=== PATIENT | female | born 1960 | race Caucasian/White ===

== ENCOUNTER 2017-02-27 12:25 | Inpatient (IN) | payer OTHER ==
[~2017-02-27] VITALS: Ht 162.6 cm; Wt 70.4 kg
[~2017-02-27 12:25] MED LIST: ALPR0.5T3 PO; BACITRACIN 50,000 UNIT ONE; BUPIVACAINE/PF-EPI 0.5% 1:200K ONE; CALC-72 PO; CEFAZOLIN 1,000 MG ONE; CHOL400T10 PO; DEXAMETHASONE 4 MG/ML, 1ML ONE; DIVA500T4 PO; ESZO3TAB9 PO; MULT-658 PO; ONDANSETRON 2MG/ML, 2ML ONE; PROPOFOL 10 MG/ML, 20ML ONE; PROPOFOL 10 MG/ML, 50ML ONE; SELE200T10 PO; SUCCINYLCHOLINE 20 MG/ML, 10ML ONE; THROMBIN 20,000 UNIT VIAL TP ONE; ZIPR40CA2 PO
[2017-02-27 13:02] VITALS: BP 133/90
[2017-02-27] MEDS ORDERED: LACTATED RINGERS 1,000 ML IV SCH (13:06)
[2017-02-27] MEDS ORDERED: KETAMINE 10 MG/ML, 20ML ONE (15:09)
[2017-02-27] MEDS ORDERED: FENTANYL PF 250 MCG/5ML ONE (15:09)
[2017-02-27] MEDS ORDERED: MIDAZOLAM 1 MG/ML, 2ML ONE (15:09)
[2017-02-27] MEDS ORDERED: BUPIVACAINE/PF-EPI 0.5% 1:200K INFIL ONE (17:30)
[2017-02-27] MEDS ORDERED: HYDROmorphone 1 MG/ML, 1ML ONE (18:08)
[2017-02-27] MEDS ORDERED: FENTANYL PF 100 MCG/2ML ONE ×2 (18:08→20:37)
[2017-02-27] MEDS ORDERED: hydrALAzine 20 MG/ML, 1ML IV PRN (19:30)
[2017-02-27] MEDS ORDERED: ACETAMINOPHEN 325 MG TABLET PO PRN (19:30)
[2017-02-27] MEDS ORDERED: PROMETHAZINE 25 MG/ML, 1ML IV PRN (19:30)
[2017-02-27] MEDS ORDERED: ALBUTEROL/IPRATROPIUM 2.5MG/0.5MG, 3 ML NPPB PRN (19:30)
[2017-02-27] MEDS ORDERED: OXYcodone 5 MG/5 ML ORAL.SOL UDC PO PRN (19:30)
[2017-02-27] MEDS ORDERED: ONDANSETRON 2MG/ML, 2ML IVPush PRN (19:30)
[2017-02-27] MEDS ORDERED: LABETALOL 5MG/ML, 20ML IV PRN ×2 (19:30→22:30)
[2017-02-27] MEDS ORDERED: MEPERIDINE/PF 25MG/0.5ML IVPush PRN (19:30)
[2017-02-27] MEDS ORDERED: MIDAZOLAM 1 MG/ML, 2ML IV PRN (19:30)
[2017-02-27] MEDS ORDERED: ACETAMINOPHEN 650 MG/20.3 ML UDC ONE (20:37)
[2017-02-27] MEDS ORDERED: HYDROmorphone 2 MG/ML, 1ML ONE (20:37)
[2017-02-27] MEDS ORDERED: OXYcodone 5 MG/5 ML ORAL.SOL UDC ONE (20:37)
[2017-02-27] MEDS: HYDROmorphone 1 MG/ML, 1ML IV PRN ×4 (20:40→21:21)
[2017-02-27] MEDS: FENTANYL PF 100 MCG/2ML IV PRN ×3 (20:45→20:56)
[2017-02-27] MEDS ORDERED: PHARMACY MAY ADJ FOR RENAL FX MC PRN (22:00)
[2017-02-27] MEDS ORDERED: ZOLPIDEM 5MG TABLET PO PRN (22:30)
[2017-02-27] MEDS ORDERED: HYDROcodone/APAP 5/325 TABLET PO PRN (22:30)
[2017-02-27] MEDS ORDERED: DIAZEPAM 5 MG TABLET PO PRN (22:30)
[2017-02-27] MEDS ORDERED: METHOCARBAMOL 1,000 MG in DEXTROSE 5% 100 ML IV ONE (22:30)
[2017-02-27] MEDS ORDERED: MAGNESIUM HYDROXIDE 8%, 30ML UDC PO PRN (22:30)
[2017-02-27] MEDS ORDERED: BISACODYL 10 MG SUPP PR PRN (22:30)
[2017-02-27] MEDS ORDERED: DIAZEPAM 5 MG/ML, 2ML IV PRN (22:30)
[2017-02-27] MEDS: NS + 20MEQ KCL 1,000 ML IV SCH (23:00)
[2017-02-27] MEDS: CEFAZOLIN PMX 1GM/50ML 50 ML IVPB SCH (23:00)
[2017-02-28 00:06] VITALS: BP 131/77
[2017-02-28] MEDS: OXYcodone/APAP 10/325MG TABLET PO PRN ×5 (00:42→19:38)
[2017-02-28 03:55] VITALS: BP 107/67
[2017-02-28] MEDS: ONDANSETRON 2MG/ML, 2ML IV PRN ×3 (05:10→18:12)
[2017-02-28] MEDS: morphine SULFATE 10 MG/ML, 1ML IV PRN ×3 (05:12→15:39)
[2017-02-28] MEDS: CEFAZOLIN PMX 1GM/50ML 50 ML IVPB SCH (06:16)
[2017-02-28] MEDS: PROMETHAZINE 25 MG/ML, 1ML IM PRN ×2 (06:28→15:44)
[2017-02-28] MEDS: METHOCARBAMOL 750 MG in DEXTROSE 5% 100 ML IV SCH ×3 (06:53→23:08)
[2017-02-28] MEDS: CHOLECALCIFEROL 400 UNITS TABLET PO SCH (08:26)
[2017-02-28] MEDS: CALCIUM/VITAMIN D3 250-125 TABLET PO SCH (08:26)
[2017-02-28] MEDS: SENNA/DOCUSATE TABLET PO SCH (08:26)
[2017-02-28 08:27] VITALS: BP 117/74
[2017-02-28] MEDS ORDERED: LORazepam 2 MG/ML, 1ML IV ONE (09:30)
[2017-02-28] MEDS ORDERED: ACETAMINOPHEN 500 MG TABLET PO PRN (09:30)
[2017-02-28] MEDS ORDERED: ALUMINUM/MAG/SIMETHICONE 30 ML UDC PO PRN (09:30)
[2017-02-28] MEDS ORDERED: ACETAMINOPHEN 650 MG SUPP PR PRN ×2 (09:30→12:30)
[2017-02-28] MEDS ORDERED: METOCLOPRAMIDE 10MG TABLET PO SCH (09:30)
[2017-02-28] MEDS ORDERED: PANTOPRAZOLE 40 MG IV IVPush ONE (09:30)
[2017-02-28] MEDS: DEXAMETHASONE 4 MG/ML, 1ML IV SCH ×3 (10:57→21:31)
[2017-02-28] MEDS ORDERED: ACETAMINOPHEN 650 MG SUPP ONE (12:30)
[2017-02-28] MEDS: NS + 20MEQ KCL 1,000 ML IV SCH (12:34)
[2017-02-28] MEDS: METOCLOPRAMIDE 5 MG/ML, 2ML IVPush PRN ×2 (12:53→21:45)
[2017-02-28 14:30] VITALS: BP 126/71
[2017-02-28 18:52] VITALS: BP 145/79
[2017-02-28] MEDS ORDERED: DIVALPROEX 250 MG TAB.ER.24H PO SCH (21:00)
[2017-02-28] MEDS ORDERED: ZIPRASIDONE 40MG CAPSULE PO SCH (21:00)
[2017-03-01] MEDS: OXYcodone/APAP 10/325MG TABLET PO PRN ×3 (00:45→14:07)
[2017-03-01 01:18] VITALS: BP 124/72
[2017-03-01] MEDS: NS + 20MEQ KCL 1,000 ML IV SCH ×2 (02:47→14:03)
[2017-03-01] MEDS: DEXAMETHASONE 4 MG/ML, 1ML IV SCH ×3 (04:11→15:13)
[2017-03-01] MEDS: METHOCARBAMOL 750 MG in DEXTROSE 5% 100 ML IV SCH ×2 (05:55→14:30)
[2017-03-01 07:50] VITALS: BP 142/86
[2017-03-01] MEDS ORDERED: HYDROcodone/APAP 10/325 MG TABLET PO PRN (08:00)
[2017-03-01] MEDS: SENNA/DOCUSATE TABLET PO SCH (09:19)
[2017-03-01] MEDS: CALCIUM/VITAMIN D3 250-125 TABLET PO SCH (09:20)
[2017-03-01] MEDS: CHOLECALCIFEROL 400 UNITS TABLET PO SCH (09:20)
[2017-03-01 15:55] VITALS: BP 156/84
[2017-03-03] MEDS ORDERED: METHOCARBAMOL 750 MG TABLET PO SCH (06:30)
== END 2017-03-01 16:25 | disposition home or self-care (01) | DRG 460 ==
LOC: ORIP 12:25 → 4NOR 21:47
PROVIDERS: ADMIT Neurological Surgery; ATTEND Neurological Surgery
PROC: 0SB20ZZ Excision of Lumbar Vertebral Disc, Open Approach (ICD-10-PCS; 2017-02-27)
PROC: 4A11X4G Monitoring of Peripheral Nervous Electrical Activity, Intraoperative, External Approach (ICD-10-PCS; 2017-02-27)
PROC: 0SG00AJ Fusion of Lumbar Vertebral Joint with Interbody Fusion Device, Posterior Approach, Anterior Column, Open Approach (ICD-10-PCS; principal; 2017-02-27 17:00)
DX: M48.06 Spinal stenosis, lumbar region (principal); M51.16 Intervertebral disc disorders with radiculopathy, lumbar region
CPT/HCPCS: 72100; J0690; J1100; J1170; J2250; J2405; J2550; J2704; J3010; J3480; C9113; J0330; J2060; J2270; J2765; J2800